=== PATIENT | male | born 2000 | race Caucasian/White ===

== ENCOUNTER 2025-04-17 17:25 | Emergency (ER) | payer SELFPAY ==
[2025-04-17] MEDS: Bacitracin Oint 1 GM U/D Packet TOP ONE (18:47)
[2025-04-17] MEDS: Diphtheria,Pertussis(Acell),Tetanus Vaccine 0.5 ML Syringe ONE (18:57)
[2025-04-17] MEDS: Water For Injection, Sterile 20 ML ONE (18:59)
[2025-04-17 19:17] VITALS: BP 133/71; PULSE 81
[2025-04-17] MEDS ORDERED: Diphtheria/Tetanus Toxoids,Adult (Td) 0.5 ML SDV IM ONE (20:00)
== END 2025-04-17 19:32 | disposition home or self-care (01) ==
LOC: JP.ED 17:25
DX: S62.635B Displaced fracture of distal phalanx of left ring finger, initial encounter for open fracture (principal); W23.1XXA Caught, crushed, jammed, or pinched between stationary objects, initial encounter; Z23 Encounter for immunization
CPT/HCPCS: 12002; 73120; 90715; 96372; 99283; J0690; J2003